=== PATIENT | female | born 1965 | race Two or more races ===

== ENCOUNTER 2016-04-23 06:59 | Emergency (ER) | payer OTHER ==
[~2016-04-23] VITALS: Ht 162.6 cm; Wt 54.4 kg
[2016-04-23] MEDS ORDERED: MECLIZINE HCL 12.5 MG TABLET ONE (07:35)
[2016-04-23] MEDS: MECLIZINE HCL 12.5 MG TABLET PO ONE (07:45)
[2016-04-23 07:51] LABS: BASOPHILS % (AUTO) 0.7 % (0.0-2.0); DIFF TOTAL % 100 %; EOSINOPHILS # (AUTO) 0.1 /CMM (0.0-0.7); EOSINOPHILS % (AUTO) 1.7 % (0.0-6.0); HEMATOCRIT 44 % (33-45); HEMOGLOBIN 14.9 g/dL (11.5-14.8); LYMPHOCYTES # (AUTO) 2.1 /CMM (0.8-4.8); MEAN CORPUSCULAR HEMOGLOBIN 31 PG (26.0-33.0); MEAN CORPUSCULAR HGB CONC 34 g/dl (31.0-36.0); MEAN CORPUSCULAR VOLUME 91 fL (82-100); MONOCYTES # (AUTO) 0.5 /CMM (0.1-1.30); NEUTROPHILS # (AUTO) 3.7 /CMM (1.8-8.9); NEUTROPHILS % (AUTO) 57.6 % (43.0-81.0); PLATELET COUNT (AUTO) 248 /CMM (150-450); RED BLOOD CELL COUNT(AUTO) 4.84 MIL/uL (4.0-5.2); WHITE BLOOD COUNT (AUTO) 6.5 K/uL (4.3-11.0)
[2016-04-23 07:58] LABS: ANION GAP 13 (5-14); CALCIUM, SERUM 9.3 mg/dL (8.5-10.1); CARBON DIOXIDE 28 mmol/L (21-32); CHLORIDE 102 mmol/L (98-107); CREATININE 0.7 mg/dL (0.6-1.3); GFR 88 mL/min (>60); GLUCOSE 91 mg/dL (74-106); POTASSIUM 3.7 mmol/L (3.5-5.1); SODIUM SERUM 140 mmol/L (136-145); UREA NITROGEN, BLOOD 18 mg/dL (7-18)
[2016-04-23 08:07] LABS: TROPONIN I < 0.017 ng/mL (0.00-0.056)
[2016-04-23 08:09] LABS: INR 0.99 (0.87-1.13); PROTHROMBIN TIME 10.7 SECS (9.5-12.7)
[2016-04-23] MEDS ORDERED: METR45CR TP (08:24)
[2016-04-23] MEDS ORDERED: ASPIRIN 325 MG TABLET ONE (08:30)
[2016-04-23] MEDS: ASPIRIN 325 MG TABLET PO ONE (08:33)
[2016-04-23 08:38] VITALS: BP 115/71
== END 2016-04-23 08:47 | disposition home or self-care (01) ==
LOC: ER 07:02
DX: R07.89 Other chest pain (principal); H81.10 Benign paroxysmal vertigo, unspecified ear
CPT/HCPCS: 36415; 70450; 71010; 80048; 84484; 84703; 85025; 85730; 93005 ×2; 99285; J8597; A4606; Z7610